=== PATIENT | male | born 1965 | race Caucasian/White ===

== ENCOUNTER 2016-10-26 13:46 | Emergency (ER) | payer BC ==
[~2016-10-26] VITALS: Ht 172.7 cm; Wt 106.1 kg
[~2016-10-26 13:46] MED LIST: ASPIRIN EC325 MG PO; CEFTIN500 MG PO; DEPO-TESTOS200 MG/ML IM; DOXYCYCLINE HY100 MG PO; IBUPROFEN200 M1 PO; NASACORT AQ16.5 GM BOTH NARES; NASONEX17 GM BOTH NARES; PANTOPRAZOLE SO40 MG PO; PROAIR HFA8.5 GM IH; PROBIOTIC PO; PROVENTIL2.5 MG/3 M IH; PULMICORT FLE180 MCG IH; PULMICORT FLEX90 MCG IH; TESTOSTERO200 MG/11 IM; TYLENOL EXTRA500 MG PO; TYLENOL REGULA325 MG PO; ZANTAC75 M1 PO; cipro; nasocort
[2016-10-26 14:18] LABS: ADD MIUA? NO; BILIRUBIN NEGATIVE; BLOOD NEGATIVE; COLOR DK YELLOW ((YELLOW)); GLUCOSE (STRIP) NEGATIVE; KETONES TRACE; LEUKOCYTES NEGATIVE; NITRITE NEGATIVE; PH, URINE 5.5 (5-8); PROTEIN (STRIP) 30; SPECIFIC GRAVITY 1.031 (1.000-1.030); UCUL ADDED? NO; UROBILINOGEN 0.2 MG/DL (0.2-1.0)
[2016-10-26 15:30] LABS: HEMATOCRIT 48.7 % (38.0-50.0); MCH 31.5 PG (29.0-34.0); MCHC 34.1 G/DL (30.0-36.0); MCV 92.4 FL (86-99); MEAN PLAT.VOLUME 9.7 uM^3 (9.0-12.4); PLATELET COUNT 256 K/uL (156-360); RBC DIS.WIDTH-CV 12.4 % (11.8-14.6); RBC DIS.WIDTH-SD 41.4 % (39-53); RED BLOOD COUNT 5.27 M/uL (4.00-5.50); WHITE BLOOD COUNT 9.7 K/uL (4.1-10.2)
[2016-10-26 15:39] LABS: CHLORIDE 109 mEq/L (99-109); SODIUM 138 mEq/L (136-147)
[2016-10-26 15:42] LABS: ANION GAP 12 MEQ/L (2-14); GLUCOSE 112 mg/dL (70-99)
[2016-10-26 15:43] LABS: TOTAL BILIRUBIN 0.7 mg/dL (0.0-1.0)
[2016-10-26 15:45] LABS: ALKALINE PHOSPHATASE 57 IU/L (3-129); GFR ESTIMATE (CALCULATED) > 59 mL/min/
[2016-10-26 15:46] LABS: UREA NITROGEN (BUN) 21 mg/dL (9-23)
[2016-10-26] MEDS ORDERED: BENICAR5 MG PO (16:01)
[2016-10-26 16:10] LABS: LIPASE 43 U/L (1.0-51.0)
[2016-10-26] MEDS ORDERED: ZOFRAN ODT4 MG PO (21:39)
[2016-10-26] MEDS ORDERED: BENTYL10 MG PO (21:39)
[2016-10-26 22:16] VITALS: BP 135/81
== END 2016-10-26 21:47 | disposition home or self-care (01) ==
LOC: EME 13:46
DX: R10.9 Unspecified abdominal pain (principal); R11.0 Nausea; J45.909 Unspecified asthma, uncomplicated; I10 Essential (primary) hypertension; K21.9 Gastro-esophageal reflux disease without esophagitis
CPT/HCPCS: 74177; 76705; 80053; 81003; 83690; 85027; 99281; 99285; J2270; J2405; J7030

== ENCOUNTER 2016-11-19 12:23 | Day surgery (SDC) | payer BC ==
[~2016-11-19] VITALS: Ht 172.7 cm; Wt 109.3 kg
[~2016-11-19 12:23] MED LIST changes: +BENICAR20 MG PO; +BENICAR5 MG PO; +BENTYL10 MG PO; +MOBIC15 MG PO; +ULTRAM50 MG PO; +ZOFRAN ODT4 MG PO
[2016-11-19] MEDS ORDERED: PULMICORT FLE180 MCG IH (14:34)
== END 2016-11-19 16:15 | disposition home or self-care (01) ==
LOC: PAIN 12:23 → SDC 13:15 → PAIN 16:15
PROC: 3E0T3BZ Introduction of Anesthetic Agent into Peripheral Nerves and Plexi, Percutaneous Approach (ICD-10-PCS; principal; 2016-11-19)
PROC: 3E0T33Z Introduction of Anti-inflammatory into Peripheral Nerves and Plexi, Percutaneous Approach (ICD-10-PCS; principal; 2016-11-19)
DX: M47.896 Other spondylosis, lumbar region (principal); M54.5 Low back pain; K21.9 Gastro-esophageal reflux disease without esophagitis; I10 Essential (primary) hypertension; F41.1 Generalized anxiety disorder; J45.909 Unspecified asthma, uncomplicated; Z79.51 Long term (current) use of inhaled steroids
CPT/HCPCS: J1030; J2250; J3010; S0020

== ENCOUNTER 2016-12-10 13:47 | Day surgery (SDC) | payer BC ==
[~2016-12-10] VITALS: Ht 172.7 cm; Wt 105.2 kg
== END 2016-12-10 16:20 | disposition home or self-care (01) ==
LOC: PAIN 13:47 → SDC 14:45 → PAIN 16:20
DX: M47.26 Other spondylosis with radiculopathy, lumbar region (principal); F41.9 Anxiety disorder, unspecified; M51.26 Other intervertebral disc displacement, lumbar region; M99.83 Other biomechanical lesions of lumbar region; E66.9 Obesity, unspecified; Z68.36 Body mass index [BMI] 36.0-36.9, adult; J45.909 Unspecified asthma, uncomplicated; G89.29 Other chronic pain; I10 Essential (primary) hypertension
CPT/HCPCS: J1030; J2250; J3010; S0020

== ENCOUNTER 2017-03-11 08:52 | Day surgery (SDC) | payer BC ==
[~2017-03-11] VITALS: Ht 172.7 cm; Wt 99.8 kg
[~2017-03-11 08:52] MED LIST changes: +ZYRTEC10 M3 PO
== END 2017-03-11 10:59 | disposition home or self-care (01) ==
LOC: PAIN 08:52 → SDC 09:15 → PAIN 10:59
DX: M51.16 Intervertebral disc disorders with radiculopathy, lumbar region (principal); M54.5 Low back pain; G89.29 Other chronic pain; I10 Essential (primary) hypertension; J45.909 Unspecified asthma, uncomplicated; K21.9 Gastro-esophageal reflux disease without esophagitis; Z87.891 Personal history of nicotine dependence; E66.9 Obesity, unspecified; Z68.33 Body mass index [BMI] 33.0-33.9, adult
CPT/HCPCS: J1030; J2250; J3010; S0020

== ENCOUNTER 2017-08-17 10:26 | Day surgery (SDC) | payer BC ==
[~2017-08-17] VITALS: Ht 172.7 cm; Wt 99.8 kg
== END 2017-08-17 12:57 | disposition home or self-care (01) ==
LOC: PAIN 10:26 → SDC 11:00 → PAIN 12:57
PROC: 3E0R3BZ Introduction of Anesthetic Agent into Spinal Canal, Percutaneous Approach (ICD-10-PCS; principal; 2017-08-17)
PROC: 3E0R33Z Introduction of Anti-inflammatory into Spinal Canal, Percutaneous Approach (ICD-10-PCS; principal; 2017-08-17)
DX: M47.26 Other spondylosis with radiculopathy, lumbar region (principal); M51.16 Intervertebral disc disorders with radiculopathy, lumbar region; M48.061 Spinal stenosis, lumbar region without neurogenic claudication; M70.72 Other bursitis of hip, left hip; M53.3 Sacrococcygeal disorders, not elsewhere classified; G89.29 Other chronic pain; I10 Essential (primary) hypertension; J45.909 Unspecified asthma, uncomplicated; K21.9 Gastro-esophageal reflux disease without esophagitis; Z79.891 Long term (current) use of opiate analgesic
CPT/HCPCS: J1100; J2250; J3010

== ENCOUNTER 2017-09-14 10:29 | Day surgery (SDC) | payer BC ==
[~2017-09-14] VITALS: Ht 172.7 cm; Wt 99.8 kg
== END 2017-09-14 12:00 | disposition home or self-care (01) ==
LOC: PAIN 10:29 → SDC 11:00 → PAIN 12:00
DX: M47.26 Other spondylosis with radiculopathy, lumbar region (principal); M51.16 Intervertebral disc disorders with radiculopathy, lumbar region; M54.5 Low back pain; G89.29 Other chronic pain; I10 Essential (primary) hypertension; M53.3 Sacrococcygeal disorders, not elsewhere classified; J45.909 Unspecified asthma, uncomplicated; K21.9 Gastro-esophageal reflux disease without esophagitis
CPT/HCPCS: J1100; J2250; J3010